=== PATIENT | female | born 1960 ===

== ENCOUNTER 2017-03-14 19:23 | Emergency (ER) | payer MEDICARE ==
[2017-03-14 19:23] VITALS: BMI 32.0
[2017-03-14 20:02] VITALS: BP 183/80
[2017-03-14] MEDS ORDERED: Dexamethasone 4 mg/1 ml IM STA (21:00)
[2017-03-14] MEDS ORDERED: Oxycodone/Acetaminophen 5/325 mg Tab PO STA (21:01)
[2017-03-14] MEDS ORDERED: Dexamethasone 4 mg/1 ml ONE ×2 (21:06→21:08)
[2017-03-14] MEDS ORDERED: Oxycodone/Acetaminophen 5/325 mg Tab ONE (21:06)
[2017-03-14 21:50] VITALS: PULSE 74; RESP 18; TEMP 98.3; O2SAT 97
[2017-03-14] MEDS ORDERED: Albuterol-Ipratrop 3 mg / 0.5 (3 ml) UD ONE (21:59)
[2017-03-14] MEDS ORDERED: Albuterol-Ipratrop 3 mg / 0.5 (3 ml) UD INH STA (22:08)
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
== END 2017-03-14 22:16 | disposition home or self-care (01) ==
LOC: C.ER 19:23
DX: G89.29 Other chronic pain (principal); M54.42 Lumbago with sciatica, left side
CPT/HCPCS: 96372; 99283; J1100